=== PATIENT | female | born 1960 | race Caucasian/White ===

== ENCOUNTER 2016-07-24 05:15 | Day surgery (SDC) | payer BC ==
[2016-07-23 09:03] VITALS: BMI 26.2
--- NOTE | 2016-07-24 08:45 | HP ---
[id number] Illness: 56 year old G0 LMP 2013 who had sudden onset of vaginal bleeding on 07/05/16 which lasted for 6 days. She reports prior to that time she had breast tenderness. Pap smear performed on 06/12/16 was negative for malignancy and negative HPV. A pelvic ultrasound was performed on 07/10/2016 revealing a uterus 5 by 5 by 5 cm with an endometrium mearsuring 11 mm with a posterior wall fibroid measuring 2.5 cm. Ovaries were normal. History Source: Patient Limitations to Obtaining History: No Limitations - Past Medical History ...: 0 - Past Surgical History Hx Myomectomy: No Hx Transabdominal Cerclage: No - Smoking History Smoking history: Former smoker Have you smoked in the past 12 months: No - Alcohol/Substance Use Hx Alcohol Use: Yes (OCCAS) Home Medications - Allergies Allergies/Adverse Reactions: Allergies Allergy/AdvReac Type Severity Reaction Status Date / Time amoxicillin Allergy Severe Hives Verified 07/24/16 11:31 - Home Medications Home Medications: Ambulatory Orders Aspirin [ASA -] 81 mg PO DAILY 07/23/16 Beta-Carotene(A) W-C and E/Min [Ocuvite (Nf)] 1 tab PO DAILY 07/23/16 Fenofibrate Nanocrystallized [Tricor] 145 mg PO DAILY 07/23/16 Lorazepam 1.25 mg PO DAILY 07/23/16 Mv-Mn/Iron/FA/Herbal Cmplx#190 [Vitamin D3 Complete Caplet] 1 each PO DAILY Potassium 99 mg PO DAILY 07/23/16 Sertraline HCl [Zoloft -] 150 mg PO DAILY 07/23/16 Ubidecarenone/Vit E Acetate [Co Q-10 100 mg Softgel] 1 each PO DAILY 07/23/16 Family Disease History - Family Disease History Family Disease History: CA: Father (Colon cancer age 83) Review of Systems - Review of Systems Constitutional: reports: No Symptoms Cardiovascular: reports: No Symptoms Respiratory: reports: No Symptoms Gastrointestinal: reports: No Symptoms Genitourinary: reports: No Symptoms Breasts: reports: No Symptoms Reported Physical Exam-[employer] Constitutional: Yes: Well Nourished, No Distress Neck: Yes: WNL, Supple Cardiovascular: Yes: WNL, Regular Rate and Rhythm Respiratory: Yes: WNL, Regular Gastrointestinal: Yes: WNL Pelvis: Yes: WNL External Genitalia: Yes: Normal Internal Exam Deferred: Yes Vaginal Exam: Yes: Normal Cervix: Yes: Normal Uterus: Yes: Normal, Freely Moveable Adnexa: Normal: Bilateral Extremities: Yes: WNL Edema: No Imaging - Results Ultrasound: Report Reviewed, Image Reviewed (Endometrium 1.1 cm.) Assessment/Plan Impression: Postmenopausal Bleeding Plan: D and C with Hysteroscopy 07/24/16
[2016-07-24] MEDS ORDERED: MIDAZOLAM HCL 2 MG/2 ML SINGLE DOSE VIAL ONE (12:15)
[2016-07-24] MEDS ORDERED: PROPOFOL 20 ML ONE ×2 (12:15)
[2016-07-24] MEDS ORDERED: LIDOCAINE HCL/PF 2% SDV 5ML VIAL ONE (12:21)
[2016-07-24] MEDS ORDERED: KETOROLAC TROMETHAMINE 30 MG/1 ML VIAL ONE (12:35)
[2016-07-24] MEDS ORDERED: DEXAMETHASONE SOD PHOSPHATE 4 MG/1 ML VIAL ONE (12:35)
[2016-07-24] MEDS ORDERED: FERRIC SUBSULFATE 500 ML BOTTLE TP ONE (12:58)
[2016-07-24] MEDS ORDERED: ACETAMINOPHEN 325 MG TABLET (FP) PO PRN (13:07)
[2016-07-24] MEDS ORDERED: IBUPROFEN 400 MG TABLET (FP) PO PRN (13:07)
[2016-07-24] MEDS ORDERED: ONDANSETRON 4 MG/2 ML VIAL IVPUSH PRN (13:24)
[2016-07-24] MEDS ORDERED: LACTATED RINGERS SOLUTION 1,000 ML IV SCH (13:30)
[2016-07-24 14:45] VITALS: TEMP 97.7
[2016-07-24 15:46] VITALS: BP 116/56; PULSE 67
--- NOTE | 2016-07-25 12:28 | OP ---
DATE OF OPERATION: 07/24/2016 PREOPERATIVE DIAGNOSIS: Postmenopausal bleeding. POSTOPERATIVE DIAGNOSIS: Postmenopausal bleeding, plus cervical stenosis. SURGEON: Victor Hugo Chau MD ANESTHESIA: General. BLOOD LOSS: 10 mL. FLUIDS: 400 mL. PROCEDURE: Under general anesthesia, the patient was placed in dorsal lithotomy position, prepped and draped in the usual sterile manner. Pelvic examination was performed revealing the uterus that was retroverted. Adnexa were negative bilaterally. A weighted speculum was inserted in the vagina. The anterior lip of the cervix was grasped with a sharp-tooth tenaculum. It was noted that the cervix was markedly narrowed. A small dilator was placed into the canal. Marked resistance was noted. With careful gentle pressure, cervical dilatation was accomplished. There was obstruction noted in the internal cervical os. With the hysteroscope , the endocervical canal was visualized, and the canal was visualized, directed posteriorly. With dilatation, the cervical canal was then dilated. Hysteroscope was then inserted. The right cavity was visualized entirely. There was proliferation of tissue on the posterior wall. With these findings noted, hysteroscope was then removed. The uterine cavity was curetted. Polypoid tissue was obtained. The tenaculum was removed from the cervix. It was noted that there was some bleeding on the cervix anterior lip where the tenaculum site was. Monsel was placed with good hemostasis. Patient was then brought to the recovery room in satisfactory condition. VICTOR HUGO CHAU M.D. [id number] MTDD
--- NOTE | 2016-07-25 13:18 | PATH ---
Surgical Pathology Report Patient Name: ABHISHEK GARCIA [facility]. Rec. #: [id number] /Age/Gender: 1960 (Age: 56) / F Account: [id number] Location: [facility] SURGICAL Taken: 07/24/2016 Received: 07/24/2016 Reported: 07/25/2016 Physicians: Victor Hugo Mckeon M.D. Specimen(s) Received ENDOMETRIAL CURETTINGS Clinical History 56 year old G0 LMP 2012, Pap negative 06/12/16 Postmenopausal bleeding Final Diagnosis ENDOMETRIUM, CURETTAGE: FRAGMENTS OF ENDOMETRIAL POLYP. BACKGROUND FRAGMENTS OF INACTIVE ENDOMETRIUM. FRAGMENTS OF BENIGN SMOOTH MUSCLE. FRAGMENTS OF BENIGN ENDOCERVICAL TISSUE. FRAGMENTS OF BENIGN SQUAMOUS EPITHELIUM. Electronically Signed Edgardo Berman M.D. Gross Description Received in formalin, labeled "endometrial curetting" is a 4.5 x 2.7 x 0.3 cm aggregate of sandoval-red soft tissue fragments admixed with blood clot. The formalin is filtered and the specimen is entirely submitted in two cassettes. /07/24/2016 [facility] [place]07/24/2016
== END 2016-07-24 15:46 | disposition home or self-care (01) ==
LOC: JASU-SURG 05:15
PROVIDERS: ATTEND Obstetrics & Gynecology
PROC: 0UDB8ZX Extraction of Endometrium, Via Natural or Artificial Opening Endoscopic, Diagnostic (ICD-10-PCS; principal; 2016-07-24 12:00)
DX: N95.0 Postmenopausal bleeding (principal); N88.2 Stricture and stenosis of cervix uteri
CPT/HCPCS: 88305-TC; 94760